=== PATIENT | female | born 1990 | race Caucasian/White ===

== ENCOUNTER 2024-06-13 07:33 | Emergency (ER) | payer BC ==
[2024-06-13] MEDS ORDERED: Naloxone 2 MG/2 ML Syringe IVPUSH PRN ×2 (07:43→08:31)
[2024-06-13] MEDS: Ondansetron 4 MG/2 ML SDV IVPUSH PRN (07:46)
[2024-06-13 07:47] LABS: BASOPHILS ABSOLUTE AUTO 0.05 10^3/uL (0.00-0.50); BASOPHILS PERCENT AUTO 0.5 % (0-1); EOSINOPHILS ABSOLUTE AUTO 0.13 10^3/uL (0.00-1.50); EOSINOPHILS PERCENT AUTO 1.2 % (0-6); HEMATOCRIT 39.4 % (37.0-47.0); IMMATURE GRAN ABSOLUTE AUTO 0.01 10^3/uL (0.00-0.49); IMMATURE GRAN PERCENT AUTO 0.1 % (0.0-4.9); LYMPHOCYTES ABSOLUTE AUTO 2.46 10^3/uL (0.60-5.00); LYMPHOCYTES PERCENT AUTO 22.4 % (24-44); MEAN CORPUSCULAR HEMOGLOBIN 29.1 pg (27.0-32.0); MEAN CORPUSCULAR VOLUME 88.3 fL (83.0-97.0); MONOCYTES ABSOLUTE AUTO 0.52 10^3/uL (0.00-1.50); MONOCYTES PERCENT AUTO 4.7 % (0-10); NEUTROPHILS ABSOLUTE AUTO 7.81 x10^3/uL (1.80-8.00); NEUTROPHILS PERCENT AUTO 71.1 % (41-71); PLATELET COUNT,PLT 323 10^3/uL (150-400); RED BLOOD CELL COUNT 4.46 x10^6/uL (4.00-5.50)
[2024-06-13] MEDS: HYDROmorphone 1 MG/ML Syringe IVPUSH ONE ×2 (07:49→08:35)
[2024-06-13 07:51] LABS: APPEARANCE,URINE CLEAR (CLEAR); BILIRUBIN,URINE NEGATIVE (NEGATIVE); COLOR,URINE YELLOW (YELLOW); GLUCOSE,URINE NEGATIVE (NEGATIVE); KETONES,URINE NEGATIVE (NEGATIVE); LEUKOCYTE ESTERASE,URINE NEGATIVE (NEGATIVE); NITRITE,URINE NEGATIVE (NEGATIVE); OCCULT BLOOD,URINE NEGATIVE (NEGATIVE); PH,URINE 5.5 (4.5-8.0); PROTEIN,URINE NEGATIVE (NEGATIVE); UROBILINOGEN,URINE 0.2 EU/dL (0.2-1.0)
[2024-06-13 07:59] LABS: ALANINE AMINOTRANSFERASE,ALT 25 U/L (12-78); ALBUMIN 4.2 g/dL (3.4-5.0); ALKALINE PHOSPHATASE 66 U/L (46-116); ASPARTATE AMNIOTRANSFERASE,AST 58 U/L (15-37); BILIRUBIN TOTAL 0.5 mg/dL (0.0-1.0); BLOOD UREA NITROGEN,BUN 15 mg/dL (7-18); CARBON DIOXIDE,CO2 21 mmol/L (21-32); CHLORIDE,CL 103 mEq/L (98-106); CREATININE 0.9 mg/dL (0.6-1.0); EST CRCL DRUG DOSING (CG) 78.09 mL/min; GLUCOSE RANDOM 169 mg/dL (75-99); LIPASE 39 U/L (16-77); MAGNESIUM 1.8 mg/dL (1.8-2.4); POTASSIUM,K 3.5 mEq/L (3.5-5.0); PROTEIN TOTAL,TP 7.3 g/dL (6.4-8.2); SODIUM,NA 141 mEq/L (136-145)
[2024-06-13 08:02] LABS: C-REACTIVE PROTEIN < 0.50 mg/dL (<=0.50); ESTIMATED GFR 86 mL/min (>=60)
[2024-06-13] MEDS: Pantoprazole 40 MG Vial IVPUSH STA (08:04)
[2024-06-13] MEDS: Sodium Chloride 0.9% 1,000 ML IV ONE (08:30)
[2024-06-13] MEDS: diphenhydrAMINE 50 MG/ML SDV IVPUSH ONE (09:21)
[2024-06-13] MEDS: Morphine 4 MG/ML VIAL IVPUSH ONE (09:21)
[2024-06-13] MEDS: Iopamidol 755 Mg/ML 100 ML Bottle IVPUSH ONE (09:24)
[2024-06-13] MEDS: Famotidine 20 MG/2 ML SDV IVPUSH ONE (10:38)
[2024-06-13] MEDS: Pantoprazole 40 MG Tab.CR PO STA (10:45)
[2024-06-13] MEDS: Take Home: Acetaminophen/HYDROcodone 325-5 MG, 2 Tab Pack PO ONE (10:45)
[2024-06-13] MEDS: Acetaminophen/HYDROcodone 325-5 MG Tab PO ONE (10:55)
[2024-06-13] MEDS: Alum Hydrox/Mag Hydrox/Simeth 30 ML, Lidocaine 2% 15 ML PO ONE (11:06)
== END 2024-06-13 12:06 | disposition home or self-care (01) ==
LOC: CC.ED 07:33
DX: K29.00 Acute gastritis without bleeding (principal); Z88.2 Allergy status to sulfonamides; Z88.1 Allergy status to other antibiotic agents
CPT/HCPCS: 36415; 74177; 80053; 81003; 83690; 83735; 84703; 85025; 86140; 96361; 96374; 96375; 96376; 99284-25; A9270-GY; J1171; J1200; J2270; J2405; J2470; J3490; J7030; Q9967